=== PATIENT | female | born 1945 | race Caucasian/White ===

== ENCOUNTER → 2018-12-04 11:04 | Outpatient (CLI) | payer MEDICARE, SELFPAY ==
[2018-12-04 14:36] LABS: CRP < 2.90 mg/L (0.0-3.0)
[2018-12-05 16:07] LABS: Endomysial Antibody IgA Negative (Negative)
[2018-12-06 11:31] LABS: Immunoglobulin A 81 mg/dL (64-422); t-Transglutaminase IgA <2 U/mL (0-3)
== END ==
PROVIDERS: Family Provider Family Medicine; PCP Family Medicine; Referring Provider Internal Medicine Gastroenterology; Visit Provider Internal Medicine Gastroenterology
DX: R19.7 Diarrhea, unspecified (principal)
CPT/HCPCS: 36415; 82784; 83516; 86140; 86255

== ENCOUNTER → 2022-03-16 | Outpatient (CLI) | payer MEDICARE, SELFPAY ==
--- NOTE | 2022-03-16 09:34 | RAD_ITS ---
STUDY: X-RAY - CERVICAL SPINE REASON FOR EXAM: Female, 76 years old. Neck pain; bilateral occipital neuralgia TECHNIQUE: 3 view(s) of the cervical spine were obtained. COMPARISON: None FINDINGS: Normal anterior atlantoaxial articulation. Normal odontoid process. Straightening of cervical lordosis. Moderate anterior osteophyte formation C5-C6, severe anterior osteophyte formation C6-7, mild anterior osteophyte formation C7-T1 or loss of disc space height C5-C7 moderate C7-T1 Normal visualized intervertebral neuroforamina. The soft tissue structures are unremarkable. RAD/Cerv Spine 2 or 3 Views IMPRESSION: Degenerative changes as above. Electronically Signed: Pito Fabian MD, LARRY at 10:33 EDT ,
== END | disposition home or self-care (01) ==
LOC: MTRAD 09:34
PROVIDERS: PCP Family Medicine; Referring Provider Psychiatry & Neurology Neurology; Visit Provider Psychiatry & Neurology Neurology
DX: M54.81 Occipital neuralgia (principal); M54.2 Cervicalgia
CPT/HCPCS: 72040